=== PATIENT | male | born 1955 | race Caucasian/White ===

== ENCOUNTER 2017-01-18 11:04 | Emergency (ER) | payer OTHER ==
[~2017-01-18] VITALS: Ht 180.3 cm; Wt 102.1 kg
[2017-01-18 11:04] VITALS: BP_SYST 152
--- NOTE | 2017-01-18 11:04 | NUR ---
Placed in room 03. Placed on collar baster jumpbasting, blood pressure machine and pulse oximeter. To gown for exam. Side rails up. Dr. Branch at bedside for evaluation
--- NOTE | 2017-01-18 11:05 | NUR ---
dr. bravo at bedside examining the pt.
--- NOTE | 2017-01-18 11:10 | NUR ---
Pt. was brought in to the ER AAOx4 via EMS for left sided chest pain, as per pt. the chest pain started yesterday morning, "feels like pressure than pain" non radiating,states the pressure goes away with movement, states pressure causes discomfort, gets dizzy and light headed at moments, took 325 asprin pain resided, no pain or pressure at this time, restinf, on plate glass polisher
--- NOTE | 2017-01-18 11:12 | NUR ---
x ray at bedside
--- NOTE | 2017-01-18 11:16 | NUR ---
lab at bedside for blood draw
--- NOTE | 2017-01-18 11:17 | NUR ---
Pt. presented to the ER with 18 guage IV on his left hand, site intact, easily flushed with 10cc NS
[2017-01-18 11:30] LABS: BASOPHILS # (AUTO) 0.1 K/uL (0.0-0.2); BASOPHILS % (AUTO) 1.1 % (0.0-2.0); EOSINOPHILS # (AUTO) 0.2 K/uL (0.0-0.4); EOSINOPHILS % (AUTO) 3.2 % (0.0-4.0); HEMATOCRIT 45.5 % (36-54); HEMOGLOBIN 15.1 g/dL (14.0-18.0); LYMPHOCYTES # (AUTO) 1.8 K/uL (1.0-5.5); LYMPHOCYTES % (AUTO) 30.3 % (20.5-51.5); MEAN CORPUSCULAR HEMOGLOBIN 32 pg (27-31); MEAN CORPUSCULAR HGB CONC 33 % (32-36); MEAN CORPUSCULAR VOLUME 96 fL (79.0-98.0); MONOCYTES # (AUTO) 0.6 K/uL (0.0-1.0); MONOCYTES % (AUTO) 10.3 % (1.7-9.3); NEUTROPHILS # (AUTO) 3.1 K/uL (1.8-7.7); NEUTROPHILS % (AUTO) 55.1 % (40.0-70.0); PLATELET COUNT (AUTO) 202 K/uL (130-430); RED BLOOD CELL COUNT(AUTO) 4.76 MIL/uL (4.2-6.2); RED CELL DISTRIBUTION WIDTH 11.9 % (9.0-15.0); WHITE BLOOD COUNT (AUTO) 5.8 K/uL (4.8-10.8)
[2017-01-18 11:41] LABS: PROTHROMBIN TIME 10.4 SECS (9.5-12.5)
[2017-01-18 11:47] LABS: BILIRUBIN,URINE NEGATIVE (NEGATIVE); CLARITY/URINE CLEAR (CLEAR); COLOR,URINE YELLOW (YELLOW); GLUCOSE,URINE NEGATIVE (NEGATIVE); KETONES,URINE TRACE (NEGATIVE); LEUKOCYTE ESTERASE ,URINE NEGATIVE (NEGATIVE); NITRITE, URINE NEGATIVE (NEGATIVE); PH,URINE 5.5 (5.0-8.0); PROTEIN URINE NEGATIVE (NEGATIVE); UROBILINOGEN,URINE 0.2 (0.2-1.0)
[2017-01-18 11:47] LABS: POTASSIUM 3.6 mmol/L (3.5-5.1)
[2017-01-18 11:48] LABS: CALCIUM 8.8 mg/dL (8.4-11.0); CREATININE 1.52 mg/dL (0.55-1.30)
[2017-01-18 11:49] LABS: ALBUMIN 4.3 g/dL (3.4-4.8); TOTAL BILIRUBIN 0.4 mg/dL (0.0-1.0); TOTAL PROTEIN, SERUM 7.7 g/dL (6.4-8.3)
[2017-01-18 11:51] LABS: BLOOD, URINE TRACE (NEGATIVE)
[2017-01-18 11:56] LABS: BACTERIA,URINE RARE /HPF (None Seen); RBC,URINE 0-3 /HPF (0-3); WBC,URINE NONE SEEN /HPF (0-3)
--- NOTE | 2017-01-18 12:41 | NUR ---
dr. bravo at bedside talking to pt. about trabsfer to [place] for [facility]
--- NOTE | 2017-01-18 14:09 | NUR ---
Jayson is accepting at [facility]. Phone number for report is [phone]. Accepting MD is Dr. Gilmore. [facility] has rranged for transport via contracted ambulance service, ALS ETA [id number].
--- NOTE | 2017-01-18 14:45 | NUR ---
FAMILY AT BEDSIDE PT. STATES NO PIAN OR PRESSURE, VERBALIZED COMFORT AT THIS TIME
--- NOTE | 2017-01-18 15:07 | NUR ---
SPOKE TO [facility] AT [place], CHARGE UNABLE TO COME TO THE PHONE, CALL BACK NUMBER LEFT WITH [facility] BENNETT FOR REPORT
--- NOTE | 2017-01-18 15:26 | NUR ---
SPOKE WITH [facility] BENNETT AT [place] GAVE REPORT
--- NOTE | 2017-01-18 16:03 | NUR ---
[facility] ambulance at bedside for ALS transport to [facility] ER. Patient has been accepted by Dr. Gandhi. Report was called by Laura BENNETT to recieving facility. All pertinent records sent including H & P, nursing notes, x-rays, labs.
[2017-01-18 16:15] VITALS: BP_SYST 158
== END 2017-01-18 16:11 | disposition short-term general hospital (02) ==
LOC: SED 11:04
DX: R07.9 Chest pain, unspecified (principal); I10 Essential (primary) hypertension; I25.10 Atherosclerotic heart disease of native coronary artery without angina pectoris; Z88.8 Allergy status to other drugs, medicaments and biological substances; Z98.890 Other specified postprocedural states
CPT/HCPCS: 36415; 71010; 80053; 80061; 81000-TC; 83880; 84484; 85025; 85379; 85610-TC; 85730-TC; 93005; 99285